=== PATIENT | female | born 1995 | race Caucasian/White ===

== ENCOUNTER 2024-07-31 16:12 | Emergency (ER) | payer OTHER ==
[~2024-07-31] VITALS: Ht 154.9 cm; Wt 49.9 kg
[2024-07-31] MEDS ORDERED: AMOX-430 PO (19:15)
[2024-07-31] MEDS ORDERED: SULF1TAB48 PO (19:15)
[2024-07-31] MEDS ORDERED: NAPR-1009 PO (19:15)
[2024-07-31] MEDS: LIDOCAINE HCL/PF 1% 30 ML VIAL TP ONE (19:17)
[2024-07-31 19:25] VITALS: BP 132/89; TEMP 98.3; O2SAT 98
== END 2024-07-31 19:25 | disposition home or self-care (01) ==
LOC: ER 16:18
DX: N75.0 Cyst of Bartholin's gland (principal)
CPT/HCPCS: 99284; 56420; J3490